=== PATIENT | male | born 1975 | race Caucasian/White ===

== ENCOUNTER 2016-12-08 14:03 | Emergency (ER) | payer MEDICARE | END 2016-12-08 16:50 | disposition home or self-care (01) | LOC: ER1 14:03 | DX: S52.612A Displaced fracture of left ulna styloid process, initial encounter for closed fracture (principal); F17.210 Nicotine dependence, cigarettes, uncomplicated; W22.01XA Walked into wall, initial encounter | CPT/HCPCS: 29125; 73090; 73110; 99283 ==

== ENCOUNTER → 2016-12-18 | Outpatient (CLI) | payer MEDICARE | LOC: KOH-I 14:00 | DX: S52.512A Displaced fracture of left radial styloid process, initial encounter for closed fracture (principal); S52.612A Displaced fracture of left ulna styloid process, initial encounter for closed fracture | CPT/HCPCS: 73200 ==